=== PATIENT | female | born 2000 | race American Indian/Alaskan Native ===

== ENCOUNTER 2020-11-30 11:06 | Emergency (ER) | payer SELFPAY ==
[2020-11-30 11:20] VITALS: BP 134/62
--- NOTE | 2020-11-30 14:34 | Emergency Department Report ---
Chief Complaint: Urogenital-Female Stated Complaint: STD TESTING Time Seen by Provider: 11/30/20 13:58 - HPI History of Present Illness: 20-year-old female with no significant past history presents to the ER today requesting STD testing. Patient states that she started with a vaginal discharge and is concerned that it may be related to STD. She denies any pelvic or abdominal pain. She denies any abnormal vaginal bleeding. She denies any known exposures to an STD. She denies any UTI symptoms. - Exam Vital Signs: Vital Signs 11/30/20 11:17 Temperature 98.7 F Pulse Rate 68 Respiratory 16 Rate Blood Pressure 134/62 O2 Sat by Pulse 100 Oximetry MSE screening note: Focused history and physical exam performed. Due to findings the following was ordered: ED Medical Decision Making - Medical Decision Making 20-year-old female with no significant past history presents to the ER today requesting STD testing. Patient states that she started with a vaginal discharge and is concerned that it may be related to STD. She denies any pelvic or abdominal pain. She denies any abnormal vaginal bleeding. She denies any kn own exposures to an STD. She denies any UTI symptoms. Patient is well-appearing, nontoxic and not in any acute distress. She has a soft nontender abdomen. She is neurologically intact with a normal gait. Her vital signs are stable. At this time based on patient's history, physical and current condition she does not have a medical emergency and there is no indication for any emergent medical intervention or treatment at this time. It was recommended to patient that she follows up with one of the local urgent cares, many clinics or [facility]. Patient expressed understanding and was stable at time of discharge. ED Disposition for MSE Clinical Impression: Vaginal discharge Disposition: DC- TO HOME OR SELFCARE Is pt being admited?: No Does the pt Need Aspirin: No Condition: Stable ED Review of Systems ROS: Stated complaint: STD TESTING Other details as noted in HPI Comment: All other systems reviewed and negative Constitutional: denies: chills, fever Eyes: denies: eye pain, eye discharge, vision change ENT: denies: ear pain, throat pain Respiratory: denies: cough, shortness of breath, SOB with exertion, SOB at rest, wheezing Cardiovascular: denies: chest pain, palpitations, dyspnea on exertion, edema, syncope, paroxysmal nocturnal dyspnea Gastrointestinal: denies: abdominal pain, nausea, vomiting, diarrhea, constipation, hematemesis, hematochezia Genitourinary: discharge. denies: urgency, dysuria, frequency, hematuria, abnormal menses, dyspareunia Musculoskeletal: denies: back pain, joint swelling, arthralgia, myalgia Skin: denies: rash, lesions, change in color, change in hair/nails, pruritus Neurological: denies: headache, weakness, numbness, paresthesias, confusion, abnormal gait, vertigo Psychiatric: denies: anxiety, depression, auditory hallucinations, visual hallucinations, homicidal thoughts, suicidal thoughts Hematological/Lymphatic: denies: easy bleeding, easy bruising, swollen glands ED Physical Exam - General Limitations: No Limitations General appearance: alert, in no apparent distress - Head Head exam: Present: atraumatic, normocephalic, normal inspection - Eye Eye exam: Present: normal appearance, PERRL, EOMI Pupils: Present: normal accommodation - ENT ENT exam: Present: normal exam, mucous membranes moist - Neck Neck exam: Present: normal inspection, full ROM - Respiratory Respiratory exam: Present: normal lung sounds bilaterally. Absent: respiratory distress, wheezes, rales, rhonchi - Cardiovascular Cardiovascular Exam: Present: regular rate, normal rhythm, normal heart sounds - GI/Abdominal GI/Abdominal exam: Present: soft. Absent: distended, tenderness, guarding, rebound, rigid - Neurological Exam Neurological exam: Present: alert, oriented X3, CN II-XII intact, normal gait - Psychiatric Psychiatric exam: Present: normal affect, normal mood - Skin Skin exam: Present: intact
--- NOTE | 2020-11-30 14:34 | Emergency Department Report ---
Chief Complaint: Urogenital-Female Stated Complaint: STD TESTING Time Seen by Provider: 11/30/20 13:58 - Exam Vital Signs: Vital Signs 11/30/20 11:17 Temperature 98.7 F Pulse Rate 68 Respiratory 16 Rate Blood Pressure 134/62 O2 Sat by Pulse 100 Oximetry MSE screening note: Focused history and physical exam performed. Due to findings the following was ordered: ED Disposition for MSE Clinical Impression: Vaginal discharge Is pt being admited?: No Does the pt Need Aspirin: No Condition: Stable
== END 2020-11-30 23:00 | disposition home or self-care (01) ==
LOC: ED 11:06
DX: N89.8 Other specified noninflammatory disorders of vagina (principal)
CPT/HCPCS: 99281

== ENCOUNTER 2020-12-25 17:00 | Emergency (ER) | payer SELFPAY ==
[2020-12-25] MEDS ORDERED: PENICILLIN G BENZATHINE 1.2 MILLION UNIT/2 ML INJ IM ONE (18:22)
[2020-12-25] MEDS ORDERED: FAMOTIDINE 20 MG TAB PO ONE (18:28)
[2020-12-25] MEDS ORDERED: methylPREDNISolone Sod Succinate 125 MG/2 ML INJ IM ONE (18:28)
[2020-12-25] MEDS ORDERED: diphenhydrAMINE 25 MG CAP PO ONE (18:28)
--- NOTE | 2020-12-25 19:08 | Emergency Department Report ---
ED General Adult HPI - General Chief complaint: Medical Clearance Stated complaint: STD Time Seen by Provider: 12/25/20 18:12 Source: patient Mode of arrival: Ambulatory Limitations: No Limitations - History of Present Illness Initial comments: Patient is a 20-year-old female presents emergency room with complaints of clear watery discharge with a fishy odor that began a few days ago. She states that she is sexually active without protection. She denies any fever, nausea, vomiting, diarrhea, abdominal pain, pelvic pain, back pain, dysuria, urinary symptoms, vaginal bleeding, vaginal itching, vaginal burning, lesions or blisters. Patient states that she went to [facility] to have a full STD panel performed. Patient has her results with her which shows her RPR was positive with a high titer, she denies any ulcers or blisters. She denies any rashes. Patient was negative for gonorrhea, chlamydia, HSV-2, HIV. Patient states that when she was a child she got penicillin and reports that she had a rash, she denied any facial swelling or difficulty swallowing or sensation of throat closing, she states that she has not had penicillin since she was a child. - Related Data Previous Rx's Medication Instructions Recorded Last Taken Type metroNIDAZOLE [Flagyl] 500 mg PO BID 7 Days #14 tab 12/25/20 Unknown Rx Allergies Allergy/AdvReac Type Severity Reaction Status Date / Time Penicillins Allergy Itching Verified 12/25/20 17:43 ED Review of Systems ROS: Stated complaint: STD Other details as noted in HPI Comment: All other systems reviewed and negative ED Past Medical Hx - Past Medical History Previous Medical History?: No - Surgical History Past Surgical History?: No - Social History Smoking Status: Never Smoker Substance Use Type: Marijuana - Medications Home Medications: Home Medications Medication Instructions Recorded Confirmed Last Taken Type metroNIDAZOLE [Flagyl] 500 mg PO BID 7 Days #14 tab 12/25/20 Unknown Rx ED Physical Exam - General Limitations: No Limitations General appearance: alert, in no apparent distress - Head Head exam: Present: atraumatic, normocephalic - Eye Eye exam: Present: normal appearance - ENT ENT exam: Present: mucous membranes moist - Respiratory Respiratory exam: Present: normal lung sounds bilaterally. Absent: respiratory distress, wheezes, rales, rhonchi, stridor, chest wall tenderness, accessory muscle use, decreased breath sounds, prolonged expiratory - Cardiovascular Cardiovascular Exam: Present: regular rate, normal rhythm, normal heart sounds. Absent: systolic murmur, diastolic murmur, rubs, gallop - GI/Abdominal GI/Abdominal exam: Present: soft, normal bowel sounds. Absent: distended, tenderness, guarding, rebound, rigid - Neurological Exam Neurological exam: Present: alert, oriented X3 - Psychiatric Psychiatric exam: Present: normal affect, normal mood - Skin Skin exam: Present: warm, dry, intact ED Course Vital Signs 12/25/20 12/25/20 17:43 19:43 Temperature 99.0 F 98.2 F Pulse Rate 65 59 L Respiratory 16 18 Rate Blood Pressure 121/76 135/83 O2 Sat by Pulse 100 100 Oximetry ED Medical Decision Making - Medical Decision Making Patient is a 20-year-old female presents emergency room with complaints of clear watery discharge with a fishy odor that began a few days ago. She states that she is sexually active without protection. She denies any fever, nausea, vomiting, diarrhea, abdominal pain, pelvic pain, back pain, dysuria, urinary symptoms, vaginal bleeding, vaginal itching, vaginal burning, lesions or blisters. Patient states that she went to [facility] to have a full STD panel performed. Patient has her results with her which shows her RPR was positive with a high titer, she denies any ulcers or blisters. She denies any rashes. Patient was negative for gonorrhea, chlamydia, HSV-2, HIV. Patient states that when she was a child she got penicillin and reports that she had a rash, she denied any facial swelling or difficulty swallowing or sensation of throat closing, she states that she has not had penicillin since she was a child. Vitals are normal. Discussed case with Dr. Cain Contreras, ER attending who advised to give patient IM penicillin and to have her follow-up with all department. Patient was pretreated for allergic reaction and given penicillin IM with no complications and observed without any reaction. Patient also given prescription for Flagyl to cover for bacterial vaginosis and trichomonas. Patient already had full STD panel which was negative for other STDs. Advised patient Please take medication as prescribed. Follow-up with the health department. Follow-up with a primary care doctor. Please have any partners tested and treated as well. Avoid sexual intercourse. Return to emergency room for any new or worsening symptoms. Critical care attestation.: If time is entered above; I have spent that time in minutes in the direct care of this critically ill patient, excluding procedure time. ED Disposition Clinical Impression: Syphilis Vaginitis Qualifiers: Chronicity: acute Qualified Code(s): N76.0 - Acute vaginitis Disposition: HOME / SELF CARE / HOMELESS Is pt being admited?: No Does the pt Need Aspirin: No Condition: Stable Instructions: Syphilis, Vaginitis Additional Instructions: Please take medication as prescribed. Follow-up with the health department. Follow-up with a primary care doctor. Please have any partners tested and treated as well. Avoid sexual intercourse. Return to emergency room for any new or worsening symptoms. Prescriptions: metroNIDAZOLE [Flagyl] 500 mg PO BID 7 Days #14 tab Referrals: [facility] [Outside] - 2-3 Days [facility] [Provider Group] - 2-3 Days Time of Disposition: 19:07 Print Language: PORTUGUESE
[2020-12-25 19:51] VITALS: BP 135/83
== END 2020-12-25 19:25 | disposition home or self-care (01) ==
LOC: ED 17:00
DX: A53.9 Syphilis, unspecified (principal); N76.0 Acute vaginitis; F12.90 Cannabis use, unspecified, uncomplicated; Z88.0 Allergy status to penicillin; Z79.899 Other long term (current) drug therapy
CPT/HCPCS: 96372; 99282; J0561; J2930